=== PATIENT | male | born 1970 | race Native Hawaiian/Other Pacific Islander ===

== ENCOUNTER 2020-02-16 16:21 | Emergency (ER) | payer OTHER ==
[~2020-02-16] VITALS: Ht 167.6 cm; Wt 73.6 kg
[2020-02-16 17:14] LABS: PLATELET COUNT 253 K/uL (142-355)
[2020-02-16 17:25] LABS: POTASSIUM 3.9 mmol/L (3.6-5.2)
[2020-02-16 17:58] VITALS: BP 120/74; TEMP 98.4
== END 2020-02-16 17:59 | disposition home or self-care (01) ==
LOC: ED 16:21
PROVIDERS: Family Medicine
DX: S80.862A Insect bite (nonvenomous), left lower leg, initial encounter (principal); L03.116 Cellulitis of left lower limb; W57.XXXA Bitten or stung by nonvenomous insect and other nonvenomous arthropods, initial encounter; Y92.89 Other specified places as the place of occurrence of the external cause
CPT/HCPCS: 36415; 80053; 85027; 85379; 96372; 99283; J2930